=== PATIENT | female | born 1975 | race African-American/Black ===

== ENCOUNTER 2024-05-27 12:52 | Emergency (ER) | payer OTHER ==
[~2024-05-27] VITALS: Ht 162.6 cm; Wt 55.0 kg
[2024-05-27 12:58] VITALS: O2SAT 100
[2024-05-27 13:59] LABS: BASOPHILS % 1.1 % (0.0-2.0); EOSINOPHILS % 0.1 % (0.0-5.0); HEMATOCRIT. 39.2 % (36.0-48.0); HEMOGLOBIN. 12.6 g/dL (12.0-16.0); MEAN CORPUSCULAR HEMOGLOBIN 29.2 pg (28.0-32.0); MEAN CORPUSCULAR HGB CONC 32.1 g/dL (31.0-37.0); MEAN CORPUSCULAR VOLUME 90.9 fL (81.0-99.0); MEAN PLATELET VOLUME 7.2 fl (7.4-10.4); MONOCYTES % 8.2 % (2.0-8.0); NEUTROPHILS % 65.6 % (40.0-76.0); PLATELET 213 x1000/uL (130-400); RED BLOOD CELL COUNT 4.31 mill/uL (4.2-5.4); RED CELL DISTRIBUTION WIDTH 16.9 % (11.6-14.6); WHITE BLOOD COUNT 4.6 x1000/uL (4.5-11.0)
[2024-05-27 14:05] LABS: CHLORIDE 98 mEq/L (98-107); SODIUM 138 mEq/L (136-145)
[2024-05-27 14:06] LABS: CARBON DIOXIDE 25 mEq/L (21-32)
[2024-05-27 14:07] LABS: CALCIUM 8.8 mg/dL (8.7-10.4)
[2024-05-27 14:11] LABS: CREATININE 0.8 mg/dL (0.6-1.0); GLUCOSE 170 mg/dL (70-105); HCG SCREEN NEGATIVE; UREA NITROGEN BLOOD 6 mg/dL (9-23)
[2024-05-27 14:12] LABS: ETHANOL BLOOD 300 mg/dL (<10)
[2024-05-27 14:13] LABS: ACETAMINOPHEN < 2 ug/mL (10-30); ALANINE AMINOTRANSFERASE 64 IU/L (10-49); ALBUMIN 4.7 g/dL (3.2-4.8); ASPARTATE AMINOTRANSFERASE 122 IU/L (<34)
[2024-05-27 14:14] LABS: BILIRUBIN DIRECT 0.1 mg/dL (<=3.0); BILIRUBIN TOTAL 0.3 mg/dL (0.1-1.0); PROTEIN TOTAL 7.2 g/dL (6.0-8.3)
[2024-05-27] MEDS: POTASSIUM CHLORIDE 20MEQ TABLET SR PO ONE (14:28)
[2024-05-27] MEDS: CHLORDIAZEPOXIDE 25MG CAPSULE PO ONE (14:30)
[2024-05-27 16:56] LABS: CLARITY URINE CLEAR (CLEAR); COLOR URINE YELLOW (YELLOW); GLUCOSE URINE NEGATIVE (NEGATIVE); KETONES URINE TRACE (NEGATIVE); LEUKOCYTE ESTERASE URINE TRACE (NEGATIVE); NITRITE URINE NEGATIVE (NEGATIVE); OCCULT BLOOD URINE TRACE (NEGATIVE); PROTEIN URINE 1+ (NEGATIVE); SPECIFIC GRAVITY URINE 1.004 (1.005-1.030); UROBILINOGEN URINE 0.2 E.U./dL (0.2-1.0)
[2024-05-27 17:16] LABS: BACTERIA URINE 2+; RBC URINE 0-2 /hpf (0-2); SQUAMOUS EPITHELIAL CELL URINE 2+ /lpf (RARE/1+)
[2024-05-27 17:25] LABS: *AMPHETAMINES SCREEN URINE NEGATIVE (NEGATIVE); *BARBITURATES SCREEN URINE NEGATIVE (NEGATIVE); *BENZODIAZEPINES SCREEN URINE PRESUMPTIVE POSITIVE (NEGATIVE); *COCAINE SCREEN URINE NEGATIVE (NEGATIVE); CANNABINOID URINE SCREEN NEGATIVE (NEGATIVE); ECSTASY MDMA SCREEN URINE NEGATIVE (NEGATIVE); METHADONE URINE SCREEN NEGATIVE (NEGATIVE); OPIATES URINE SCREEN NEGATIVE (NEGATIVE); PHENCYCLIDINE URINE SCREEN NEGATIVE (NEGATIVE)
[2024-05-27] MEDS: ONDANSETRON 4MG ODT PO ONE (19:57)
[2024-05-27 20:01] VITALS: BP 124/69; PULSE 84; RESP 18; TEMP 98.2
== END 2024-05-27 20:26 | disposition home or self-care (01) ==
LOC: ER 12:52
DX: F10.129 Alcohol abuse with intoxication, unspecified (principal); F32.A Depression, unspecified; E11.9 Type 2 diabetes mellitus without complications; F41.9 Anxiety disorder, unspecified; Y90.8 Blood alcohol level of 240 mg/100 ml or more
CPT/HCPCS: 80076; 80305; 80048; 81003; 80307; 80329; 80320; 84703; 85025; 36415; 99284; Q0162; G0480

== ENCOUNTER 2025-07-22 23:41 | Inpatient (IN) | payer OTHER ==
[~2025-07-22] VITALS: Ht 160 cm; Wt 68.0 kg
[2025-07-22 23:59] VITALS: O2SAT 98
[2025-07-23 01:04] LABS: BG BASE EXCESS 1.5 mmol/L (-2.0-3.0); BG CARBOXYHEMOGLOBIN 0.5 % (0.5-1.5); BG DEOXYHEMOGLOBIN 7.7 % (0.0-5.0); BG FRACTION INSPIRED OXYGEN 21; BG HCO3 ACT 27.2 mmol/L (21.0-28.0); BG METHEMOGLOBIN 0.1 % (0.5-1.5); BG OXYGEN SATURATION 92.3 % (94.0-98.0); BG OXYHEMOGLOBIN 91.7 % (94.0-98.0); BG PCO2 46.9 mmHg (32.0-45.0); BG PH 7.381 (7.350-7.450); BG PO2 72.0 mmHg (83.0-108.0); BG SAMPLE SITE RIGHT RADIAL; BG TOTAL HEMOGLOBIN 13.8 g/dL (12.0-16.0); BG VENT MODE ROOM AIR
[2025-07-23 01:22] LABS: BASOPHILS % 1.0 % (0.0-2.0); EOSINOPHILS % 0.4 % (0.0-5.0); HEMATOCRIT. 43.4 % (36.0-48.0); HEMOGLOBIN. 14.0 g/dL (12.0-16.0); LYMPHOCYTES % 45.4 % (20.0-50.0); MEAN PLATELET VOLUME 7.4 fl (7.4-10.4); MONOCYTES % 4.1 % (2.0-8.0); NEUTROPHILS % 49.1 % (40.0-76.0); PLATELET 286 x1000/uL (130-400); RED BLOOD CELL COUNT 4.54 mill/uL (4.2-5.4); RED CELL DISTRIBUTION WIDTH 14.8 % (11.6-14.6)
[2025-07-23] MEDS: ONDANSETRON HCL 4MG/2ML INJ IV ONE (01:27)
[2025-07-23] MEDS: SODIUM CHLORIDE 0.9% 1,000 ML IV ONE (01:28)
[2025-07-23 01:38] LABS: CREATININE 0.8 mg/dL (0.6-1.0); TROPONIN I HIGH SENSITIVITY < 4 ng/L (3.0-34); UREA NITROGEN BLOOD 6 mg/dL (9-23)
[2025-07-23 01:40] LABS: ASPARTATE AMINOTRANSFERASE 61 IU/L (<34)
[2025-07-23 01:41] LABS: BILIRUBIN DIRECT < 0.1 mg/dL (<=3.0); BILIRUBIN TOTAL < 0.2 mg/dL (0.1-1.0); PROTEIN TOTAL 7.5 g/dL (6.0-8.3)
[2025-07-23 01:45] LABS: HCG SCREEN INDETERMINATE
[2025-07-23] MEDS: ONDANSETRON HCL 4MG/2ML INJ IV NR (03:26)
[2025-07-23] MEDS: PANTOPRAZOLE 80 MG in SODIUM CHLORIDE 0.9% 100 ML IV NR (03:27)
[2025-07-23 04:09] LABS: TROPONIN I HIGH SENSITIVITY < 4 ng/L (3.0-34)
[2025-07-23 04:15] LABS: INR 1.0
[2025-07-23] MEDS ORDERED: MAGNESIUM/ALUMINUM HYDROXIDE/SIMETHICONE 30ML UDC PO PRN (04:30)
[2025-07-23] MEDS ORDERED: CLONIDINE 0.1MG TABLET PO PRN (04:30)
[2025-07-23] MEDS ORDERED: ONDANSETRON HCL 4MG/2ML INJ IV PRN (04:30)
[2025-07-23] MEDS ORDERED: ACETAMINOPHEN 325MG TABLET PO PRN ×2 (04:30)
[2025-07-23] MEDS: BLOOD SUGAR DIAGNOSTIC STRIP TEST SCH (07:20)
[2025-07-23 08:00] VITALS: BP 138/71; PULSE 100; RESP 18; TEMP 36.2; O2SAT 95
[2025-07-23] MEDS ORDERED: DEXTROSE 50% WATER 50ML SYRINGE IV PRN (08:45)
[2025-07-23] MEDS: PANTOPRAZOLE SODIUM 40 MG/VIAL IV SCH (09:34)
[2025-07-23] MEDS: ENOXAPARIN 40MG/0.4ML SYR SUBCUT SCH (09:37)
[2025-07-23] MEDS: INSULIN LISPRO 100 UNITS/ML SUBCUT SCH (10:27)
[2025-07-23 12:00] VITALS: BP 125/65; PULSE 84; RESP 17; TEMP 36.2; O2SAT 96
[2025-07-23] MEDS ORDERED: LIPASE/PROTEASE/AMYLASE 4,200/14,200/24,600 UNITS CAP DR PO SCH (12:50)
[2025-07-23] MEDS: MVI, ADULT NO.1 10 ML, FOLIC ACID 1 MG, THIAMINE HCL 100 MG in SODIUM CHLORIDE 0.9% 1,0... IV SCH (13:48)
[2025-07-23 16:00] VITALS: BP 139/76; PULSE 88; RESP 17; TEMP 36.3; O2SAT 99
[2025-07-23 16:54] VITALS: BP 139/76; PULSE 88; RESP 17; TEMP 36.3068
[2025-07-23] MEDS: LORAZEPAM 2MG/ML UD SYRINGE IV PRN (17:10)
[2025-07-23] MEDS: LIPASE/PROTEASE/AMYLASE 12,000/38,000/60,000 UNITS CAP DR PO SCH (18:15)
[2025-07-23 20:00] VITALS: BP 146/97; PULSE 75; RESP 20; TEMP 36.5; O2SAT 100
[2025-07-23] MEDS: INSULIN GLARGINE 100 UNITS/ML SUBCUT SCH (23:15)
[2025-07-24] VITALS: BP 132/59; PULSE 61; RESP 20; TEMP 36.4; O2SAT 98
[2025-07-24 04:00] VITALS: BP 142/80; PULSE 70; RESP 20; TEMP 36.4; O2SAT 99
[2025-07-24 08:00] VITALS: BP 150/63; PULSE 67; RESP 18; TEMP 36.4; O2SAT 97
[2025-07-24] MEDS: THIAMINE HCL 100MG TABLET PO SCH (09:39)
[2025-07-24] MEDS: FOLIC ACID 1MG TABLET PO SCH (09:39)
[2025-07-24] MEDS ORDERED: DES150 PO (10:35)
[2025-07-24] MEDS ORDERED: PRAZ1CAP5 PO (10:35)
[2025-07-24] MEDS ORDERED: SIMV-43 PO (10:35)
[2025-07-24 12:00] VITALS: BP 135/69; PULSE 82; RESP 18; TEMP 36.4; O2SAT 98
[2025-07-24 16:00] VITALS: BP 128/77; PULSE 90; RESP 18; TEMP 36.5; O2SAT 98
[2025-07-24 16:19] LABS: BASOPHILS % 0.4 % (0.0-2.0); EOSINOPHILS % 0.1 % (0.0-5.0); HEMATOCRIT. 37.6 % (36.0-48.0); HEMOGLOBIN. 12.2 g/dL (12.0-16.0); LYMPHOCYTES % 28.5 % (20.0-50.0); MEAN PLATELET VOLUME 7.6 fl (7.4-10.4); MONOCYTES % 12.3 % (2.0-8.0); NEUTROPHILS % 58.7 % (40.0-76.0); PLATELET 249 x1000/uL (130-400); RED BLOOD CELL COUNT 3.98 mill/uL (4.2-5.4); RED CELL DISTRIBUTION WIDTH 14.6 % (11.6-14.6)
[2025-07-24 16:33] LABS: CREATININE 0.7 mg/dL (0.6-1.0); UREA NITROGEN BLOOD 6 mg/dL (9-23)
[2025-07-24 16:34] LABS: ASPARTATE AMINOTRANSFERASE 55 IU/L (<34)
[2025-07-24 16:35] LABS: BILIRUBIN DIRECT 0.1 mg/dL (<=3.0)
[2025-07-24 16:36] LABS: BILIRUBIN TOTAL 0.4 mg/dL (0.1-1.0); PHOSPHORUS 2.2 mg/dL (2.5-4.9); PROTEIN TOTAL 5.9 g/dL (6.0-8.3)
[2025-07-24 20:00] VITALS: BP 125/81; PULSE 85; RESP 17; TEMP 36.3; O2SAT 99
[2025-07-24] MEDS ORDERED: MEDICATION NOT ON FORMULARY EA (Simvastatin 1 TAB) PO SCH (21:00)
[2025-07-24] MEDS: PRAZOSIN HCL 1MG CAPSULE PO SCH (22:12)
[2025-07-24] MEDS: TRAZODONE HCL 50MG TABLET PO SCH (22:13)
[2025-07-24] MEDS: ATORVASTATIN CALCIUM 10MG TABLET PO SCH (22:13)
[2025-07-25] VITALS: BP 130/75; PULSE 90; RESP 16; TEMP 36.6; O2SAT 99
[2025-07-25 04:00] VITALS: BP 128/85; PULSE 92; RESP 18; TEMP 36.3; O2SAT 99
[2025-07-25 08:00] VITALS: BP 117/60; PULSE 66; RESP 18; TEMP 36.5; O2SAT 98
[2025-07-25 12:00] VITALS: BP 116/66; PULSE 82; RESP 17; TEMP 36.3; O2SAT 96
[2025-07-25 15:52] VITALS: BP 135/83; PULSE 72; RESP 18; TEMP 97.2
[2025-07-25 16:00] VITALS: BP 135/83; PULSE 87; RESP 18; TEMP 36.2; O2SAT 99
== END 2025-07-25 17:05 | disposition home or self-care (01) | DRG 92 ==
LOC: ER 23:41 → 6WST 07-23 03:18 → EDBEDREQ 07-23 03:37 → EDBEDREQTM 07-23 03:37 → ENRESERV 07-23 05:42
PROVIDERS: ADMIT Student in an Organized Health Care Education/Training Program; ATTEND Student in an Organized Health Care Education/Training Program
DX: G92.8 Other toxic encephalopathy (principal); F10.139 Alcohol abuse with withdrawal, unspecified; K86.1 Other chronic pancreatitis; E11.65 Type 2 diabetes mellitus with hyperglycemia; F10.129 Alcohol abuse with intoxication, unspecified; Y90.8 Blood alcohol level of 240 mg/100 ml or more; Z79.4 Long term (current) use of insulin
CPT/HCPCS: 36415; 36600; 71045; 80048; 80076; 80320; 82140; 82375; 82550; 82805; 82962; 83036; 83735; 84100; 84484; 84703; 85025; 93005; 99291; J1650; J1815; J2060; J2405; J2470; J3411; J3490; J7030; J7050; G0480

== ENCOUNTER 2025-08-15 16:51 | Emergency (ER) | payer OTHER ==
[~2025-08-15] VITALS: Ht 162.6 cm; Wt 51.0 kg
[~2025-08-15 16:51] MED LIST: DES150 PO; PRAZ1CAP5 PO; SIMV-43 PO
[2025-08-15 16:56] VITALS: TEMP 37.1; O2SAT 99
[2025-08-15 18:21] LABS: BASOPHILS % 0.7 % (0.0-2.0); EOSINOPHILS % 0.3 % (0.0-5.0); HEMATOCRIT. 37.4 % (36.0-48.0); HEMOGLOBIN. 12.0 g/dL (12.0-16.0); LYMPHOCYTES % 44.1 % (20.0-50.0); MEAN PLATELET VOLUME 7.7 fl (7.4-10.4); MONOCYTES % 4.8 % (2.0-8.0); NEUTROPHILS % 50.1 % (40.0-76.0); PLATELET 246 x1000/uL (130-400); RED BLOOD CELL COUNT 4.01 mill/uL (4.2-5.4); RED CELL DISTRIBUTION WIDTH 14.6 % (11.6-14.6)
[2025-08-15 18:48] LABS: CREATININE 0.7 mg/dL (0.6-1.0); UREA NITROGEN BLOOD 9 mg/dL (9-23)
[2025-08-15] MEDS: POTASSIUM CHLORIDE 20MEQ TABLET SR PO SCH (19:15)
[2025-08-15] MEDS: SODIUM CHLORIDE 0.9% 1,000 ML IV ONE (19:39)
[2025-08-15] MEDS: KCL 20MEQ/100ML PREMIX 100 ML IV SCH (20:10)
[2025-08-15] MEDS: ONDANSETRON 4MG ODT PO ONE (20:10)
[2025-08-16 00:12] VITALS: BP 139/85; PULSE 83; RESP 15; O2SAT 98
== END 2025-08-16 00:21 | disposition home or self-care (01) ==
LOC: ER 16:51
DX: G92.9 Unspecified toxic encephalopathy (principal); F10.229 Alcohol dependence with intoxication, unspecified; E11.9 Type 2 diabetes mellitus without complications; Z79.899 Other long term (current) drug therapy; Y90.9 Presence of alcohol in blood, level not specified
CPT/HCPCS: 80048; 80320; 82962; 85025; 36415; 96361; 96365; 96366; 99285; Q0162; J3480; J7030; G0480

== ENCOUNTER 2025-10-20 16:20 | Emergency (ER) | payer OTHER ==
[~2025-10-20] VITALS: Ht 162.6 cm; Wt 64.0 kg
[2025-10-20 16:21] VITALS: O2SAT 100
[2025-10-20 17:18] LABS: BASOPHILS % 0.8 % (0.0-2.0); EOSINOPHILS % 0.8 % (0.0-5.0); HEMATOCRIT. 37.9 % (36.0-48.0); HEMOGLOBIN. 12.1 g/dL (12.0-16.0); LYMPHOCYTES % 49.6 % (20.0-50.0); MEAN PLATELET VOLUME 7.5 fl (7.4-10.4); MONOCYTES % 7.4 % (2.0-8.0); NEUTROPHILS % 41.4 % (40.0-76.0); PLATELET 275 x1000/uL (130-400); RED BLOOD CELL COUNT 4.13 mill/uL (4.2-5.4); RED CELL DISTRIBUTION WIDTH 18.5 % (11.6-14.6)
[2025-10-20 17:28] LABS: CREATININE 0.8 mg/dL (0.6-1.0); UREA NITROGEN BLOOD 6 mg/dL (9-23)
[2025-10-20 17:29] LABS: PROTEIN TOTAL 6.4 g/dL (6.0-8.3)
[2025-10-20 17:30] LABS: ASPARTATE AMINOTRANSFERASE 154 IU/L (<34); BILIRUBIN DIRECT < 0.1 mg/dL (<=3.0)
[2025-10-20 17:31] LABS: BILIRUBIN TOTAL < 0.2 mg/dL (0.1-1.0)
[2025-10-20 17:41] LABS: ETHANOL BLOOD 462 mg/dL (<10)
[2025-10-20 18:02] LABS: HCG SCREEN NEGATIVE
[2025-10-20] MEDS: SODIUM CHLORIDE 0.9% 1,000 ML IV ONE (18:22)
[2025-10-20] MEDS: DIPHENHYDRAMINE 50MG/ML VIAL IM ONE (20:01)
[2025-10-20] MEDS: HALOPERIDOL LACTATE 5MG/ML VIAL IM ONE (20:01)
[2025-10-20] MEDS: LORAZEPAM 2MG/ML UD SYRINGE IM SCH (20:01)
[2025-10-20 21:00] VITALS: BP 118/61; PULSE 77; RESP 14; TEMP 37.1; O2SAT 98
== END 2025-10-20 21:34 | disposition short-term general hospital (02) ==
LOC: ER 16:20
DX: F10.229 Alcohol dependence with intoxication, unspecified (principal); A41.9 Sepsis, unspecified organism; E11.9 Type 2 diabetes mellitus without complications; E86.0 Dehydration; Z79.899 Other long term (current) drug therapy; Z91.81 History of falling; Y90.9 Presence of alcohol in blood, level not specified
CPT/HCPCS: 80076; 80048; 80320; 84703; 83690; 85025; 36415; 71045; 70450; 93005; 96372; 99285; J1200; J1630; J2060; J7030; Z7610; G0480